=== PATIENT | male | born 1985 | race Caucasian/White ===

== ENCOUNTER 2019-07-30 15:43 | Emergency (ER) | payer OTHER ==
[~2019-07-30] VITALS: Ht 182.9 cm; Wt 72.7 kg
[2019-07-30 16:03] VITALS: Ht 182.9 cm; Wt 72.7 kg
[2019-07-30] MEDS ORDERED: AUGMENTIN 875-11 TAB PO (17:30)
[2019-07-30 17:47] VITALS: BP 140/73
== END 2019-07-30 17:47 | disposition home or self-care (01) ==
LOC: D.ER 15:43
DX: H10.213 Acute toxic conjunctivitis, bilateral (principal); K02.9 Dental caries, unspecified; R59.0 Localized enlarged lymph nodes